=== PATIENT | male | born 1950 | race Caucasian/White ===

== ENCOUNTER 2022-03-11 11:51 | Emergency (ER) | payer MEDICAID ==
[2022-03-11 12:15] VITALS: BP 205/109; PULSE 93
[2022-03-11] MEDS ORDERED: Sodium Chloride 0.9% 10 ML Syringe FLUSH PRN (12:26)
[2022-03-11] MEDS ORDERED: HYDROmorphone 0.5 MG/0.5 ML Syringe IVPUSH ONE ×2 (12:31→14:35)
[2022-03-11] MEDS ORDERED: Ondansetron 4 MG/2 ML SDV IVPUSH ONE (12:31)
[2022-03-11 14:24] LABS: ESTIMATED GFR > 60 mL/min (>60)
[2022-03-11] MEDS ORDERED: cefTRIAXone 2 GM in Sodium Chloride 0.9% 100 ML IV ONE (14:35)
== END 2022-03-11 15:52 | disposition home or self-care (01) ==
LOC: JD.ED 11:51
DX: S22.41XA Multiple fractures of ribs, right side, initial encounter for closed fracture (principal); J18.9 Pneumonia, unspecified organism; R09.02 Hypoxemia; Z20.822 Contact with and (suspected) exposure to COVID-19; W18.30XA Fall on same level, unspecified, initial encounter
CPT/HCPCS: 36415; 71101; 80053; 83735; 83880; 84484; 85025; 85610; 85730; 87635; 93005; 96365; 96375; 96376; 99285; J0696; J1170; J2405; J3490; U0002

== ENCOUNTER 2024-01-30 08:36 | Day surgery (SDC) | payer MEDICARE, OTHER ==
[2024-01-30] MEDS: Polymyxin B/Trimethoprim 10 ML Bottle EYELF SCH (08:28)
[2024-01-30] MEDS: Brimonidine 0.2% Ophth Soln 5 ML Bottle EYELF SCH (08:33)
[~2024-01-30 08:36] MED LIST: Ondansetron 4 MG/2 ML SDV IVPUSH PRN
[2024-01-30] MEDS: Phenylephrine 2.5% Ophth Soln 2 ML Bot EYELF SCH (08:38)
[2024-01-30] MEDS ORDERED: Ondansetron 4 MG/2 ML SDV IVPUSH PRN (08:39)
[2024-01-30] MEDS: Tropicamide 1% Ophth Soln 3 ML Bottle EYELF SCH (08:44)
[2024-01-30] MEDS: Tetracaine HCl/PF 0.5% 4 ML Bottle EYEBOTH SCH (09:33)
[2024-01-30] MEDS: Lidocaine 1% PF 2 ML SDV INJECT SCH (09:53)
[2024-01-30] MEDS: Pilocarpine 4% Ophth Soln 15 ML Bot EYELF SCH (10:16)
[2024-01-30] MEDS: Cefuroxime 10 MG/ML SYRINGE EYELF SCH (10:16)
[2024-01-30 10:34] VITALS: BP 152/80; PULSE 74
== END 2024-01-30 10:30 | disposition home or self-care (01) ==
LOC: JD.SDS 08:36
PROVIDERS: ATTEND Ophthalmology
DX: H25.813 Combined forms of age-related cataract, bilateral (principal); H35.033 Hypertensive retinopathy, bilateral; H11.042 Peripheral pterygium, stationary, left eye; H11.153 Pinguecula, bilateral; H35.3131 Nonexudative age-related macular degeneration, bilateral, early dry stage; H35.363 Drusen (degenerative) of macula, bilateral; H35.373 Puckering of macula, bilateral; H18.413 Arcus senilis, bilateral; I10 Essential (primary) hypertension; F17.210 Nicotine dependence, cigarettes, uncomplicated; Z79.899 Other long term (current) drug therapy; Z98.890 Other specified postprocedural states
CPT/HCPCS: 66984; A9270; J0697; 00142; 99100; J3490; V2632

== ENCOUNTER 2024-03-05 08:48 | Day surgery (SDC) | payer MEDICARE, OTHER ==
[2024-03-05] MEDS: Polymyxin B/Trimethoprim 10 ML Bottle EYERT SCH (08:50)
[2024-03-05] MEDS: Brimonidine 0.2% Ophth Soln 5 ML Bottle EYERT SCH (08:55)
[2024-03-05] MEDS: Phenylephrine 2.5% Ophth Soln 2 ML Bot EYERT SCH (09:00)
[2024-03-05] MEDS: Tropicamide 1% Ophth Soln 3 ML Bottle EYERT SCH (09:06)
[2024-03-05] MEDS: Tetracaine HCl/PF 0.5% 4 ML Bottle EYEBOTH SCH (10:16)
[2024-03-05] MEDS: Lidocaine 1% PF 2 ML SDV INJECT SCH (10:35)
[2024-03-05] MEDS: Cefuroxime 10 MG/ML SYRINGE EYERT SCH (10:41)
[2024-03-05] MEDS: Pilocarpine 4% Ophth Soln 15 ML Bot EYERT SCH (10:54)
[2024-03-05 11:06] VITALS: BP 170/85; PULSE 78
== END 2024-03-05 11:02 | disposition home or self-care (01) ==
LOC: JD.SDS 08:48
PROVIDERS: ATTEND Ophthalmology
DX: H25.811 Combined forms of age-related cataract, right eye (principal); H21.81 Floppy iris syndrome; H21.41 Pupillary membranes, right eye; I10 Essential (primary) hypertension; N40.0 Benign prostatic hyperplasia without lower urinary tract symptoms; J44.9 Chronic obstructive pulmonary disease, unspecified; Z79.899 Other long term (current) drug therapy
CPT/HCPCS: 66982; A9270; J0697; J3490

== ENCOUNTER 2025-01-13 14:06 | Emergency (ER) | payer MEDICARE, OTHER ==
[2025-01-13 14:35] VITALS: BP 152/82; PULSE 73
[2025-01-13] MEDS: Oxymetazoline 0.05% Nasal Spray 30 ML Bottle NAS ONE (16:20)
== END 2025-01-13 17:45 | disposition home or self-care (01) ==
LOC: JD.ED 14:06
DX: R04.0 Epistaxis (principal); I10 Essential (primary) hypertension; F17.210 Nicotine dependence, cigarettes, uncomplicated; Z79.899 Other long term (current) drug therapy
CPT/HCPCS: 30901; 99283; A9270